=== PATIENT | male | born 1965 | race Caucasian/White ===

== ENCOUNTER 2018-07-27 18:19 | Emergency (ER) | payer OTHER, SELFPAY ==
[2018-07-27 18:20] VITALS: BP 137/79; PULSE 48; RESP 9; TEMP 36.4; O2SAT 100; BMI 23.6
--- NOTE | 2018-07-27 18:42 | ED.VISSUMM ---
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 Patient was in the heat all day in the unventilated cab of the form machinery. He developed a pounding headache and vomited. He has generalized weakness. EMS gave him a fluid bolus and Zofran. Patient denies any medical history. Physical Examination: Vital signs: afebrile, hemodynamically stable, no hypoxia on room air General: well nourished, well developed, in no distress Skin: warm, moist, no rash, no pallor HEENT: normocephalic and atraumatic; PERRL, EOMI, moist mucous membranes Cardiovascular: regular rate and rhythm without murmurs, no peripheral edema, 2+ pulses all distal extremities Respiratory: No increased work of breathing, lungs are clear to auscultation bilaterally, no rales, rhonchi or wheezing Abdominal: Abdomen is soft, nontender with normoactive bowel sounds, no guarding or rebound, no masses MSK: Moves all extremities, no deformities, normal strength Neuro: Awake and alert, oriented ?4. No facial droop, sensation and motor function intact and symmetric Test Results: Abnormal Lab Results 07/27/18 07/27/18 07/27/18 18:33 18:33 19:05 WBC 7.6 RBC 4.38 L Hgb 13.5 Hct 42.0 MCV 95.9 H MCH 30.8 MCHC 32.1 RDW 12.3 RDW Differential 43.3 Plt Count 167 MPV 10.1 Immature Gran % (Auto) 0.100 Neut % (Auto) 78.8 H Lymph % (Auto) 13.9 L Day % (Auto) 6.6 Eos % (Auto) 0.5 Baso % (Auto) 0.1 Absolute Neuts (auto) 6.0 Absolute Lymphs (auto) 1.06 Total Counted Not Reportable Sodium 147 H Potassium 4.3 Chloride 110 H Carbon Dioxide 28.0 Anion Gap 9 BUN 24 H Creatinine 0.96 Estim Creat Clear Calc 92.94 Est GFR (MDRD) Af Amer 106 Est GFR (MDRD) Non-Af 87 BUN/Creatinine Ratio 25.1 H Glucose 128 H Calcium 8.3 L Troponin I < 0.015 POC Glucose 104 Medications Given Discontinued Medications Lactated Ringer's () 1,000 mls @ 999 mls/hr IV .Q1H1M JOSE Stop: 07/27/18 19:45 Last Admin: 07/27/18 18:48 Dose: 999 mls/hr Ketorolac Tromethamine (Toradol) 15 mg IV X1 ONE Stop: 07/27/18 18:42 Last Admin: 07/27/18 18:48 Dose: 15 mg Emergency Department Course and Treatment: Patient presents for symptoms consistent with heat exhaustion after working in significant heat in a non-ventilated and closed for machinery cab. Patient was feeling better by the time he arrived after receiving Zofran and fluids from EMS. The liter of fluid was continued and patient was given an additional liter of lactated Ringer's for a total of 2 L of IV hydration. He received additional Zofran and some Toradol for his headache. Labs were consistent with dehydration. On reevaluation patient felt much better and all symptoms had resolved. We had a long discussion about working in the heat and not working in a nonventilated hot contained area, as the temperature will rapidly rise above the outdoor temperature and patient could suffer heatstroke or even . Patient agreed. He was discharged home with instructions to rest for the next couple days and drink plenty of fluids for hydration. Treatment Plan: [] Disposition: [] Impression: Heat exhaustion, dehydration This note was generated with [employer] dictation software. It may contain incorrect words, spelling, and punctuation that were not noted in review of the chart prior to signing ED Disposition - Plan for ED Patient: Disposition: Home or Assisted Living Chief Complaint: General Illness Instructions: ED Dehydration, ED Exhaustion Heat Referrals: Lavonne Reno [Primary Care Provider] - 3-5 Days if not improving Additional Instructions: Please drink plenty of fluids to stay hydrated. Be very careful when working outdoors in the high heat, and do not work in an enclosed area for prolonged period of time, as it can rapidly get hot to the point of causing significant illness and even . If you have any worsening of your condition or any new concerning symptoms, please return immediately to the emergency department for another evaluation.
[2018-07-27 18:47] LABS: Absolute Lymphocyte Count 1.06 X10^3/ul (0.83-4.51); Basophil# 0.01 X10^3/uL; Basophil% 0.1 % (0-1); Eosinophil# 0.04 X10^3/uL; Eosinophils% 0.5 % (0-5); Hemoglobin 13.5 g/dl (13.0-16.5); Lymphocyte # 1.06 X10^3/ul (4.0); Lymphocyte % 13.9 % (19-41); Mean Corp Hgb Conc 32.1 g/gl (32-36); Mean Corpuscular Hgb 30.8 pg (27.0-32.0); Mean Corpuscular Volume 95.9 fL (80-94); Mean Platelet Vol. 10.1 fl (6.2-12.0); Monocyte% 6.6 % (0-10); Neutrophil # 5.98 X10^3/uL (2.7-7.7); Neutrophil % 78.8 % (47-70); Platelet Count 167 K/mm3 (150-450); RBC Distribution Width CV 12.3 % (11.6-14.6); RBC Distribution Width SD 43.3 fl (35.1-43.9); Red Blood Count 4.38 M/mm3 (4.6-6.2); White Blood Count 7.6 K/mm3 (4.4-11.0)
[2018-07-27 18:48] LABS: POSITIVE COUNT NO; POSITIVE DIFFERENTIAL NO; POSITIVE MORPHOLOGY NO
[2018-07-27] MEDS: Ketorolac 15 MG/ML Vial IV (18:48)
[2018-07-27] MEDS: Lactated Ringers 1,000 ML 999 ML IV (18:48)
[2018-07-27 19:04] LABS: Anion Gap 9 (5-15); BUN 24 mg/dL (7-18); BUN/Creat Ratio 25.1 RATIO (10-20); Calcium,Total 8.3 mg/dL (8.5-10.1); Chloride 110 mmol/L (98-107); Creatinine, Serum 0.96 mg/dL (0.70-1.30); EST Glomerular Filtration Rate 87 mL/min (>60); Est Glom Filt Rate - Afr Amer 106 mL/min (>60); Estimated Creatinine Clearance 92.94 ml/min; Glucose 128 mg/dL (74-106); Potassium 4.3 mmol/L (3.5-5.1); Sodium Level 147 mmol/L (136-145)
[2018-07-27 19:11] LABS: Bedside Glucose 104 mg/dL (70-110)
[2018-07-27 19:50] VITALS: BP 123/89; PULSE 73; RESP 14; O2SAT 99
--- NOTE | 2018-07-27 20:49 | ED.DEP ---
ED Disposition - Plan for ED Patient: Disposition: Home or Assisted Living Chief Complaint: General Illness Instructions: ED Exhaustion Heat, ED Dehydration Referrals: Lavonne Reno [Primary Care Provider] - 3-5 Days if not improving Additional Instructions: Please drink plenty of fluids to stay hydrated. Be very careful when working outdoors in the high heat, and do not work in an enclosed area for prolonged period of time, as it can rapidly get hot to the point of causing significant illness and even . If you have any worsening of your condition or any new concerning symptoms, please return immediately to the emergency department for another evaluation.
[2018-07-27 20:59] VITALS: BP 132/93; PULSE 79; RESP 14; O2SAT 97
== END 2018-07-27 21:00 | disposition home or self-care (01) ==
PROVIDERS: Emergency Provider Emergency Medicine; Family Provider Family Medicine; PCP Family Medicine
DX: T67.5XXA Heat exhaustion, unspecified, initial encounter (principal); X30.XXXA Exposure to excessive natural heat, initial encounter; Y93.9 Activity, unspecified; Y92.9 Unspecified place or not applicable; E86.0 Dehydration
CPT/HCPCS: 80048; 82962; 84484; 85025; 93005; 96361; 96374; 99285; A4216

== ENCOUNTER 2020-03-27 10:02 | Emergency (ER) | payer OTHER, SELFPAY ==
[2020-03-27 10:04] VITALS: BP 149/62; PULSE 63; RESP 16; TEMP 36.3; O2SAT 100; BMI 25.1
--- NOTE | 2020-03-27 10:23 | CT_ITS ---
STUDY: CT BRAIN WITHOUT CONTRAST REASON FOR EXAM: Male, 54 years old. VERTIGO SINCE LAST NIGHT, NO OTHER MED HX RADIATION DOSAGE (If Supplied By Facility): CTDIvol = ( 44.99 ) mGy, DLP = ( 812.98 ) mGycm TECHNIQUE: Transaxial CT imaging of the brain was performed without administration of intravenous contrast material. Individualized dose optimization techniques were used for this CT. COMPARISON: No relevant priors. FINDINGS: Normal soft tissue structures. Normal calvarium. Normal size ventricles and extra-axial spaces for the patient''s age. Normal white matter tracts of the cerebral hemispheres. Normal basal ganglia and thalami. Normal brainstem. Normal cerebellum. There is no intracranial hemorrhage. There are no findings of an acute ischemic infarction. There is a 1 cm because a polyp or retention cyst along the inferior medial aspect of the right maxillary sinus. CT/Brain/Head without Contrast IMPRESSION: Normal unenhanced CT scan of the brain. Electronically Signed: Darrian Mcmanus, at 10:47 EDT , Service support ,
--- NOTE | 2020-03-27 10:25 | ED.DCSUM_ITS ---
History of Present Illness Chief Complaint: Dizziness Narrative: Patient presenting for evaluation secondary to dizziness. Patient reports that last night he had a sudden onset of dizziness. He describes this as a room spinning type sensation that is worse with change in position, specifically with laying on his left side. Patient states that it was severe enough last night that he had to crawl to get to the bathroom, and has had episodes of vomiting due to its severity. He denies any visual changes numbness weakness or speech difficulty. He denies any recent head injuries. He does report that he has a baseline of tinnitus which really does not seem changed. He denies any recent dental procedures. Patient does not have any cerebrovascular risk factors, and he is a non-smoker. He reports that he called his primary care and they recommended that he come to the emergency department. He is never had any prior similar episodes in the past. Past Medical History - Allergies and Home Meds Allergies/Adverse Reactions: Allergies Penicillins Allergy (Verified 03/27/20 10:04) Unknown Primary Care Physician: Lavonne Reno MD [Primary Care Provider] - Past Medical History: None Surgical History: no surgical history Smoking Status: Never smoker - Family History Maternal Family History: Reports: No pertinent history Paternal Family History: Reports: No pertinent history Review of Systems All systems negative except as indicated General: Denies: Chills, Fever, Sweats Eyes: Denies: Visual changes - bilaterally, Diplopia ENT: Reports: - - Tinnitus Cardiovascular: Denies: Chest pain, Palpitations Respiratory: Denies: Dyspnea, Cough, Dyspnea on exertion Gastrointestinal: Denies: Abdominal pain, Nausea, Vomiting, Diarrhea, Melena, Hematochezia Genitourinary: Denies: Dysuria, Hematuria, Frequency Musculoskeletal: Denies: Back pain, Extremity Pain Skin: Denies: Rash, Wounds Neurological: Reports: - - Vertigo Physical Exam Vital Signs/Narrative: Vital Signs Temp Pulse Resp BP Pulse Ox 03/27/20 10:04 97.4 F L 63 16 149/62 H 100 Inital Vital Signs reviewed: Yes General: Well nourished, Well developed, No Acute Distress Head: Normocephalic, Atraumatic, - Eyes: Perrl, EOMI ENT: Moist mucous membranes, No rhinorrhea Neck: Supple, Nontender, - - No carotid bruits noted Cardiovascular: Regular rate, Regular rhythm, No murmurs Respiratory: No distress, CTA bilaterally, Chest nontender Abdomen: Soft, Nontender, Nondistended, Normal bowel sounds Back: Nontender, Normal Inspection Extremities: Nontender, No edema Skin: Normal color, No rash Neurological: Alert, Oriented x3, Cranial nerves II-XII grossly intact, Normal Strength, Normal Sensation, - - NIH stroke scale is 0. Normal cerebellar testing. [place]-Hallpike maneuver is positive on the right with evidence of nystagmus that is rotary. Psychological: Normal affect, Normal Mood Diagnostic/Tx/Re-eval Clinical Impression(s) from Imaging Studies Brain CT 03/27/20 10:23 IMPRESSION: Normal unenhanced CT scan of the brain. Electronically Signed: Darrian Mcmanus, at 10:47 EDT , Service support , - Medical Decision Making Patient presented secondary to dizziness. Patient's physical exam and history seem very consistent with peripheral vertigo but given his age I did perform a CT brain. This was read as negative. Patient was given meclizine in the emergency department and did have some symptomatic improvement. At this point I do not feel that the patient's presentation is secondary to central vertigo. Patient will be placed on a course of meclizine he will be given instructions on the [place] maneuver. He will be given ear nose and throat referral should he not have improvement. Patient was discharged in stable condition. ED Disposition - Plan for ED Patient: Disposition: Home or Assisted Living Diagnosis: BPPV (benign paroxysmal positional vertigo) Instructions: ED BPV Vertigo Prescriptions: Meclizine HCl 25 mg PO TID #21 tab Prescription Printed Referrals: Josué Garibay MD [STAFF PHYSICIAN] - 1 Week if not improving
[2020-03-27] MEDS: Meclizine HCl 25 MG Tablet PO (10:30)
== END 2020-03-27 11:52 | disposition home or self-care (01) ==
LOC: ED 11:20
PROVIDERS: Emergency Provider Emergency Medicine; PCP Family Medicine
DX: H81.10 Benign paroxysmal vertigo, unspecified ear (principal)
CPT/HCPCS: 70450; 99283

== ENCOUNTER 2021-07-05 20:10 | Emergency (ER) | payer OTHER, SELFPAY ==
[2021-07-05 20:11] VITALS: BP 121/80; PULSE 71; RESP 18; TEMP 36.1; O2SAT 100; BMI 24.5
--- NOTE | 2021-07-05 20:51 | EDS_ITS ---
HPI History of Present Illness Chief Complaint: General Illness Narrative Narrative: 55-year-old male with history of vertigo presenting with headache, nausea vomiting, lightheadedness. He states he believes I have heatstroke again. Patient states he was outside all day working and cannot recall when he drank water last. Patient states he forgot his water this morning. At noon he drank a root beer. He states that he drinks some water out of one of his grandchildren's water container which tasted suspicious. This was about 2 PM. Patient states that about 5 PM he drank water from a water faucet and was able to keep this down. PFSH PFSH Home Medications meclizine 25 mg PO TID #21 tab 03/27/20 [Rx Last Taken Unknown] Allergy/AdvReac Type Severity Reaction Status Date / Time Penicillins Allergy Unknown Verified 07/05/21 20:10 Surgical History (Updated 07/05/21 @ 21:33 by Vickie Martinez) History of cholecystectomy Social History Smoking Status: Never smoker [facility] Constitutional Constitutional ED: Reports sweats; Denies chills or fever(s) Eyes Eyes: Denies blurry vision or diplopia ENT ENT ED: Denies rhinorrhea or sore throat Cardiovascular Cardiovascular: Denies chest pain, palpitations or racing heartbeat Respiratory/Chest Respiratory/Chest: Denies cough, dyspnea or sputum Gastrointestinal Gastrointestinal: Reports nausea and vomiting; Denies abdominal pain Genitourinary Genitourinary ED: Denies dysuria or hematuria Musculoskeletal Musculoskeletal: Denies arthralgias or myalgias Integumentary Denies abscess or rash Neurologic Neurologic: Reports headache(s); Denies paresthesias EXAM Physical Exam Const Vital Signs: 07/05/21 20:11 07/05/21 21:27 07/05/21 21:33 Temperature 97 F L Temperature Source Temporal Pulse Rate 71 56 L Respiratory Rate 18 16 Respiratory Effort Normal Respiratory Pattern Normal Blood Pressure 121/80 H 138/88 H Blood Pressure Mean 93 104 Pulse Ox 100 99 Oxygen Delivery Method Room Air Room Air 07/05/21 23:19 07/05/21 23:25 Temperature Temperature Source Pulse Rate 88 66 Respiratory Rate 16 15 Respiratory Effort Respiratory Pattern Blood Pressure 135/82 H 124/77 H Blood Pressure Mean Pulse Ox 96 98 Oxygen Delivery Method General Appearance ED: NAD HEENT Reports moist mucous membranes Negative for trauma Eyes PERRL and EOMs intact bilaterally General Eye ED: Negative for pale conjunctiva or scleral icterus Resp normal respiratory effort and clear to auscultation bilaterally Cardio regular rate and regular rhythm GI normal to inspection, nondistended, normoactive bowel sounds Extremity normal to inspection General Extremety ED: Negative for edema or tenderness General Extremity: Negative for edema Neuro oriented x3 and CN's II-XII intact bilaterally Sensorium / Orientation: alert Psych mental status grossly normal Skin no rashes or lesions noted and no wounds MDM MDM MDM Narrative Medical decision making narrative: Patient presenting with concern for dehydration although he did state that he got diaphoretic and nauseous at home. Is unclear whether he ingested something that would make him sicker he is just dehydrated. Does complain of a headache. I did obtain blood work which shows a slight leukocytosis 13.2 however the patient did vomit prior to arrival. Hemoglobin hematocrit are stable. Platelets are normal. Creatinine is normal at 0.6 and patient was given IV fluids. EKGq on my interpretation shows a normal sinus rhythm with a ventricular to 60 bpm without signs of ischemic changes. Chest x-ray on my interpretation shows no acute cardiopulmonary process. Patient given migraine cocktail and had CT imaging of the brain given his vomiting and headache. His CT of the brain is negative. Patient feels improved on reevaluation and is drinking a Sprite. Patient counseled to increase his water intake as he is slightly dehydrated. I do not believe the patient needs to be admitted to the hospital. He is counseled on hydrating throughout the day in the summer heat. He is given return precautions. Impression: 1. Dehydration 2. Headache 3. Nausea/vomiting Lab Data Labs: Laboratory Results - last 24 hr 07/05/21 07/05/21 21:30 21:30 WBC 13.2 H RBC 5.07 Hgb 15.8 Hct 49.1 MCV 96.8 H MCH 31.2 MCHC 32.2 RDW Std Deviation 43.2 RDW Coeff of Alexandre 12.1 Plt Count 245 MPV 10.1 Immature Gran % (Auto) 0.600 Neut % (Auto) 89.5 H Lymph % (Auto) 5.5 L [place] % (Auto) 4.0 Eos % (Auto) 0.1 Baso % (Auto) 0.3 Absolute Neuts (auto) 11.8 H Absolute Lymphs (auto) 0.72 L Nucleated RBC % 0 Sodium 145 Potassium 4.0 Chloride 108 H Carbon Dioxide 32.0 Anion Gap 5 BUN 20 H Creatinine 0.86 Estim Creat Clear Calc 100.21 Est GFR (MDRD) Af Amer 119 Est GFR (MDRD) Non-Af 98 BUN/Creatinine Ratio 23.3 H Glucose 116 H Calcium 9.6 Troponin I High Sens 17.5 Radiography Diagnostic Testing: Radiology Impression Brain CT 07/05/21 21:07 IMPRESSION: No acute intracranial findings. Individualized dose optimization techniques were used for this CT. at 2309 Reported and signed by: Eros Gold MD Electronically Signed: Eros Gold MD at 23:07 EDT Tel , Service support , Chest X-Ray 07/05/21 21:55 IMPRESSION: COPD at 2219 Reported and signed by: Chuck Petty MD Electronically Signed: Chuck Petty MD at 22:18 EDT Tel , Service support , Discharge Plan Triage Chief Complaint: General Illness ED Provider: Kristian Suarez Dx/Rx/DC Orders Instructions: Understanding Headache Pain, ED Dehydration (Adult) Prescriptions: No Action meclizine 25 MG tablet 25 mg PO TID Qty: 21 RF: 0 Primary Care Provider: Lavonne Reno Referrals: Lavonne Reno MD [Primary Care Provider] - Disposition Disposition: Home, Self Care Discharge Date/Time: 07/05/21 23:25
--- NOTE | 2021-07-05 21:07 | EKG12_ITS ---
Test Reason : DYSRHYTHMIA Blood Pressure : / mmHG Vent. Rate : 060 BPM Atrial Rate : 060 BPM P-R Int : 154 ms QRS Dur : 102 ms QT Int : 424 ms P-R-T Axes : 062 054 068 degrees QTc Int : 424 ms Normal sinus rhythm Normal ECG Confirmed by FABBY FAJARDO, KIA ([id number]), editor school photograph AMIRA HARTLEY ([id number]) on 07/10/2021 8:48:55 AM Referred By: XAVI Confirmed By:KIA SEQUEIRA MD
--- NOTE | 2021-07-05 21:07 | CT_ITS ---
HISTORY: headache TECHNIQUE: Multiple axial images were obtained of the brain without intravenous contrast. A radiation dose optimization technique was used for this scan. IV Contrast dosage and agent: None. COMPARISON: 03/27/20 FINDINGS: # of images incl. paperwork: [id number] PARANASAL SINUSES AND MASTOID AIR CELLS: Clear. INTRACRANIAL HEMORRHAGE: None. BRAIN PARENCHYMA: No CT evidence of stroke. No intracranial masses. There is preservation of the shipman/white matter interface. Posterior fossa structures are unremarkable. CSF SPACES: Appropriate for age. There is no hydrocephalus. MASS EFFECT: None. CALVARIUM: Intact. CT/Brain/Head without Contrast IMPRESSION: No acute intracranial findings. Individualized dose optimization techniques were used for this CT. at 2309 Reported and signed by: Eros Gold MD Electronically Signed: Eros Gold MD at 23:07 EDT Tel , Service support ,
[2021-07-05 21:27] VITALS: BP 138/88; PULSE 56; RESP 16; O2SAT 99
[2021-07-05] MEDS: 0.9% Normal Saline 1,000 ML 1000 ML IV (21:30)
[2021-07-05] MEDS: DiphenhydrAMINE 50 MG/ML Syringe 25 MG IV (21:30)
[2021-07-05] MEDS: Metoclopramide 10 MG/2 ML Vial IV (21:31)
[2021-07-05 21:44] LABS: Absolute Lymphocyte Count 0.72 X10^3/uL (0.83-4.51); Absolute Neutrophil Count 11.8 X10^3/uL (2.0-7.7); Basophil# 0.04 X10^3/uL; Basophil% 0.3 % (0-1); Eosinophil# 0.01 X10^3/uL; Eosinophils% 0.1 % (0-5); Hematocrit 49.1 % (40-54); Hemoglobin 15.8 g/dL (13.0-16.5); Lymphocyte # 0.72 X10^3/ul (0.83-4.51); Lymphocyte % 5.5 % (19-41); Mean Corp Hgb Conc 32.2 g/dL (32-36); Mean Corpuscular Hgb 31.2 pg (27.0-32.0); Mean Corpuscular Volume 96.8 fL (80-94); Mean Platelet Vol. 10.1 fl (6.2-12.0); Monocyte# 0.53 X10^3/uL; NRBC Flagged by Analyzer 0 % (0-5); Neutrophil # 11.79 X10^3/uL (2.7-7.7); Neutrophil % 89.5 % (47-70); Platelet Count 245 K/mm3 (150-450); RBC Distribution Width CV 12.1 % (11.6-14.6); RBC Distribution Width SD 43.2 fl (35.1-43.9); Red Blood Count 5.07 M/mm3 (4.6-6.2); White Blood Count 13.2 K/mm3 (4.4-11.0)
--- NOTE | 2021-07-05 21:55 | RAD_ITS ---
HISTORY: dyspnea EXAMINATION/TECHNIQUE: XR Chest 1 View AP view COMPARISON: None FINDINGS: LINES/DEVICES: personnel monitor leads. LUNGS: Hyperexpanded lungs. No focal airspace consolidation. No pulmonary edema. No pleural effusion. No pneumothorax. MEDIASTINUM AND CARDIOVASCULAR STRUCTURES: Cardiac silhouette not enlarged. Central airways and mediastinal contour are unremarkable. BONES AND SOFT TISSUES: Chronic right rib fractures. RAD/Chest 1 View (Portable) IMPRESSION: COPD at 2219 Reported and signed by: Chuck Petty MD Electronically Signed: Chuck Petty MD at 22:18 EDT Tel , Service support ,
[2021-07-05 22:05] LABS: Anion Gap 5 (5-15); BUN 20 mg/dL (7-18); BUN/Creat Ratio 23.3 RATIO (10-20); Calcium,Total 9.6 mg/dL (8.5-10.1); Chloride 108 mmol/L (98-107); Creatinine, Serum 0.86 mg/dL (0.70-1.30); EST Glomerular Filtration Rate 98 mL/min (>60); Est Glom Filt Rate - Afr Amer 119 mL/min (>60); Estimated Creatinine Clearance 100.21 ml/min; Glucose 116 mg/dL (74-106); Sodium Level 145 mmol/L (136-145); Troponin-I HS 17.5 pg/mL (3.0-78.5)
[2021-07-05 23:19] VITALS: BP 135/82; PULSE 88; RESP 16; O2SAT 96
[2021-07-05 23:25] VITALS: BP 124/77; PULSE 66; RESP 15; O2SAT 98
== END 2021-07-05 23:25 | disposition home or self-care (01) ==
PROVIDERS: Emergency Provider Student in an Organized Health Care Education/Training Program; PCP Family Medicine
DX: E86.0 Dehydration (principal); R51.9 Headache, unspecified; R11.2 Nausea with vomiting, unspecified
CPT/HCPCS: 70450; 71045; 80048; 84484; 85025; 93005; 96361; 96374; 96375; 99285; J7030